=== PATIENT | male | born 2000 | race Caucasian/White ===

== ENCOUNTER 2019-06-27 22:09 | Emergency (ER) | payer OTHER, BC ==
[~2019-06-27] VITALS: Ht 170.2 cm; Wt 72.6 kg
[~2019-06-27 22:09] MED LIST: CEPH250A PO
[2019-06-27] MEDS ORDERED: ACULAR5 ML LEFTEYE (23:26)
[2019-06-27] MEDS ORDERED: ERYT1OIN BOTHEYES (23:26)
== END 2019-06-27 23:52 | disposition home or self-care (01) ==
LOC: ER 22:09
DX: S05.02XA Injury of conjunctiva and corneal abrasion without foreign body, left eye, initial encounter (principal); X58.XXXA Exposure to other specified factors, initial encounter
CPT/HCPCS: 99283

== ENCOUNTER 2021-02-14 11:59 | Emergency (ER) | payer BC ==
[~2021-02-14] VITALS: Ht 175.3 cm; Wt 74.8 kg
[~2021-02-14 11:59] MED LIST changes: +ACULAR5 ML LEFTEYE; +ERYT1OIN BOTHEYES
== END 2021-02-14 13:31 | disposition home or self-care (01) ==
LOC: ER 11:59
DX: S05.02XA Injury of conjunctiva and corneal abrasion without foreign body, left eye, initial encounter (principal); W45.8XXA Other foreign body or object entering through skin, initial encounter
CPT/HCPCS: 99283; A9270